=== PATIENT | female | born 1955 | race Caucasian/White ===

== ENCOUNTER 2019-10-28 23:59 | Emergency (ER) | payer OTHER ==
[~2019-10-28] VITALS: Ht 165.1 cm; Wt 54.4 kg
[2019-10-29 00:05] VITALS: BP_SYST 164
--- NOTE | 2019-10-29 00:05 | NUR ---
ER Dr. OSUNA at bedside examining patient.
--- NOTE | 2019-10-29 00:10 | NUR ---
Patient to ER bed 1 to gown for evaluation. Side rails up. ASSUMED CARE OF PT.
--- NOTE | 2019-10-29 00:11 | NUR ---
PT BIB AMBULANCE FOR POSSIBLE BLOCKAGE IN TRACH. PT AAO AND IN NO ACUTE DISTRESS. PT ON BLOW BY O2 TO TRACH AND SPO2 99% CURRENTLY, LUNGS CTA.
--- NOTE | 2019-10-29 00:13 | NUR ---
R.T. AT BEDSIDE TO ASSIST IN TRACH CARE.
--- NOTE | 2019-10-29 00:15 | NUR ---
PT COUGHED OUT MUCUS OBSTRUCTION FOLLOWING SUCTIONING PER R.T. PT PLACED ON 60% COOL MIST, SPO2 97%.
[2019-10-29 02:02] VITALS: BP_SYST 134
--- NOTE | 2019-10-29 02:04 | NUR ---
Patient given written and verbal discharge instructions and verbalizes understanding. DR. THAO CERVANTES MD discussed with patient the results and treatment provided. Patient in stable condition. ID arm band removed.Patient educated on pain management and to follow up with PMD. Pain Scale 0/10.Opportunity for questions provided and answered.
== END 2019-10-29 02:04 | disposition home or self-care (01) ==
LOC: SED 23:59
DX: T17.990A Other foreign object in respiratory tract, part unspecified in causing asphyxiation, initial encounter (principal); E87.1 Hypo-osmolality and hyponatremia; J90 Pleural effusion, not elsewhere classified; X58.XXXA Exposure to other specified factors, initial encounter; Y93.89 Activity, other specified; Y92.89 Other specified places as the place of occurrence of the external cause; Y99.8 Other external cause status
CPT/HCPCS: 71046-TC; 99283